=== PATIENT | male | born 1980 | race Caucasian/White ===

== ENCOUNTER 2018-10-03 06:45 | Inpatient (IN) | payer SELFPAY ==
[2018-10-03 06:46] VITALS: BP 129/79; PULSE 62; RESP 18; TEMP 36.6; O2SAT 99; BMI 33.0
--- NOTE | 2018-10-03 07:09 | ED.DCSUM_ITS ---
History of Present Illness Chief Complaint: Abd Pain Informant: Patient Onset: Days Context: Gradual Onset Timing: Waxes and wanes Current Severity: Moderate Maximum Severity: Moderate Narrative: Patient reports history of pancreatitis. He reports developing upper abdominal pain 4 days ago. He did not eat or drink for the next 2 days and pain was significantly improved. When he ate again yesterday he had recurrence of pain. He states he was last admitted 3 weeks ago at [facility]. He has had prior cholecystectomy. He states he was told he had some pancreatic duct stones. He also has a pseudocyst. Past Medical History - Allergies and Home Meds Allergies/Adverse Reactions: Allergies No Known Allergies Allergy (Verified 10/03/18 06:49) Primary Care Physician: Nguyen Oliver MD [NON-STAFF] - Prior records reviewed: Yes Past Medical History: - - Reviewed Surgical History: cholecystectomy Smoking Status: Current every day smoker - Family History Maternal Family History: Reports: No pertinent history Review of Systems General: Denies: Chills, Fever Eyes: Denies: Visual changes - bilaterally ENT: Denies: Bilateral ear pain Cardiovascular: Denies: Chest pain Respiratory: Denies: Dyspnea, Cough Gastrointestinal: Reports: Abdominal pain. Denies: Nausea, Vomiting, Diarrhea Musculoskeletal: Denies: Myalgias Skin: Denies: Rash Neurological: Denies: Headache Endocrine: Denies: Polyuria, Polydipsia Hematologic: Denies: Easy bruising Allergy: Denies: Uticaria Physical Exam Vital Signs/Narrative: Vital Signs Temp Pulse Resp BP Pulse Ox 10/03/18 06:46 97.9 F 62 18 129/79 H 99 General: Well nourished Head: Normocephalic ENT: Moist mucous membranes Cardiovascular: Regular rate, Regular rhythm Respiratory: No distress, CTA bilaterally Abdomen: Soft, Tender - Epigastric tenderness to palpation., Hypoactive bowel sounds. Negative for: Guarding, Rebound tenderness Skin: Normal color Neurological: Alert, Oriented x3 Psychological: Normal affect Diagnostic/Tx/Re-eval Laboratory Results 10/03/18 10/03/18 07:10 07:10 WBC 9.2 RBC 5.09 Hgb 16.3 Hct 46.8 MCV 91.9 MCH 32.0 MCHC 34.8 RDW Std Deviation 43.7 RDW Coeff of Gomez 12.9 Plt Count 271 MPV 9.1 Immature Gran % (Auto) 0.300 Neut % (Auto) 72.4 H Lymph % (Auto) 16.5 L Garrett % (Auto) 7.9 Eos % (Auto) 2.5 Baso % (Auto) 0.4 Absolute Neuts (auto) 6.6 Absolute Lymphs (auto) 1.51 Nucleated RBC % 0 Sodium 138 Potassium 3.9 Chloride 106 Carbon Dioxide 23.0 Anion Gap 9 BUN 8 Creatinine 0.79 Estim Creat Clear Calc 139.16 Est GFR (MDRD) Af Amer 141 Est GFR (MDRD) Non-Af 117 BUN/Creatinine Ratio 10.2 Glucose 108 H Calcium 9.4 Total Bilirubin 5.10 H Direct Bilirubin 3.74 H AST 234 H ALT 329 H Alkaline Phosphatase 343 H Total Protein 7.2 Albumin 3.5 Globulin 3.7 Lipase 3137 H - Medical Decision Making Patient was given morphine, Zofran, IV fluids. A second dose of analgesics has been ordered. Patient's laboratory studies do returned with elevated LFTs and lipase consistent with acute pancreatitis. I was able to review clinisync records. [place] [facility] [place] Per their notes it had been recommended that he have endoscopic ultrasound and biopsy. Apparently arrangements were made to send the patient to [facility]. Per their notes once a bed is been established patient refused transfer. When I presented this to the patient today he states that he has been dealing with pancreatitis for over 10 years. He states that he just wants to get this flare under control so he can go back to work on Friday. He currently does not have insurance and is trying to get through to get insurance where he can get these other tests performed. I spoke with hospitalist. Patient will be admitted for pain control and IV fluids. ED Disposition - Plan for ED Patient: Disposition: [facility] Diagnosis: Pancreatitis Referrals: Nguyen Oliver MD [NON-STAFF] -
[2018-10-03 07:24] LABS: Absolute Lymphocyte Count 1.51 X10^3/uL (0.83-4.51); Absolute Neutrophil Count 6.6 X10^3/uL (2.0-7.7); Basophil# 0.04 X10^3/uL; Basophil% 0.4 % (0-1); Eosinophil# 0.23 X10^3/uL; Eosinophils% 2.5 % (0-5); Hematocrit 46.8 % (40-54); Hemoglobin 16.3 g/dL (13.0-16.5); Lymphocyte # 1.51 X10^3/ul (4.0); Lymphocyte % 16.5 % (19-41); Mean Corp Hgb Conc 34.8 g/dL (32-36); Mean Corpuscular Volume 91.9 fL (80-94); Mean Platelet Vol. 9.1 fl (6.2-12.0); Monocyte# 0.72 X10^3/uL; Monocyte% 7.9 % (0-10); NRBC Flagged by Analyzer 0 % (0-5); Neutrophil # 6.64 X10^3/uL (2.7-7.7); Neutrophil % 72.4 % (47-70); Platelet Count 271 K/mm3 (150-450); RBC Distribution Width CV 12.9 % (11.6-14.6); RBC Distribution Width SD 43.7 fl (35.1-43.9); Red Blood Count 5.09 M/mm3 (4.6-6.2); White Blood Count 9.2 K/mm3 (4.4-11.0)
[2018-10-03] MEDS: 0.9% Normal Saline 1,000 ML 1000 ML IV (07:26)
[2018-10-03] MEDS: Ondansetron 4 MG/2 ML Vial IV ×3 (07:27→22:28)
[2018-10-03] MEDS: Morphine 4 MG/ML Syringe IV (07:27)
[2018-10-03] MEDS: HYDROmorphone 0.5 MG/0.5 ML SYRINGE IV (07:55)
[2018-10-03 07:56] LABS: AST(SGOT) 234 U/L (15-37); Alanine Aminotransfer ALT/SGPT 329 U/L (16-61); Albumin, Serum 3.5 g/dL (3.2-5.0); Alkaline Phosphatase 343 U/L (45-117); Anion Gap 9 (5-15); BUN 8 mg/dL (7-18); BUN/Creat Ratio 10.2 RATIO (10-20); Bilirubin, Direct 3.74 mg/dL (0.00-0.30); Calcium,Total 9.4 mg/dL (8.5-10.1); Chloride 106 mmol/L (98-107); Creatinine, Serum 0.79 mg/dL (0.70-1.30); EST Glomerular Filtration Rate 117 mL/min (>60); Est Glom Filt Rate - Afr Amer 141 mL/min (>60); Estimated Creatinine Clearance 139.16 ml/min; Globulin 3.7 g/dL (2.2-4.2); Glucose 108 mg/dL (74-106); Lipase 3137 U/L (73-393); Potassium 3.9 mmol/L (3.5-5.1); Protein, Total 7.2 g/dL (6.4-8.2); Sodium Level 138 mmol/L (136-145)
--- NOTE | 2018-10-03 08:16 | HP.PCM_ITS ---
Problem List (1) Pancreatitis Status: Acute Qualifiers: Chronicity: acute Pancreatitis type: unspecified pancreatitis type Acute pancreatitis complication: unspecified Qualified Code(s): K85.90 - Acute pancreatitis without necrosis or infection, unspecified (2) Morbid obesity with BMI of 40.0-44.9, adult Status: Chronic (3) Chronic pain syndrome Status: Chronic (4) HEALY (nonalcoholic steatohepatitis) Status: Chronic (5) Pancreas divisum Status: Chronic (6) Tobacco dependence syndrome Status: Chronic History of Present Illness Date of Admission: 10/03/18 Chief Complaint: Abdominal pain - 2 days The patient is a 37 year old M with PMHx of recurrent pancreatitis, who was recently discharged from [facility]. He has a drug seeking history He reports he has a history of pancreatic divisum, this was not seen on his last MRI in 2014. He says he was found to have some pancreatic duct stone and pseudocyst. He has a follow-up appointment in a week with his loan officer assistant. He complains of a 2-day history of abdominal pain, usually he says he is able to stop eating and the pain gets better. Over the last 2 days he has not been able to get any improvement in his pain. He denies any fever or chills or diarrhea Vitals in the ED showed BP 136/72, HR 66, temp 98.3F, respiratory rate is 18, SPO2 is 99% on room air. His admitting blood work was unremarkable except for total bilirubin of 5.10, Direct bilirubin 3.74, AST 234, ALT 329, ALP 343, lipase is 3137. Past Medical History Past Medical History (Chronic Problems): Chronic Problems Morbid obesity with BMI of 40.0-44.9, adult (Chronic) Drug-seeking behavior (Chronic) Chronic pain syndrome (Chronic) HEALY (nonalcoholic steatohepatitis) (Chronic) Pancreas divisum (Chronic) Tobacco dependence syndrome (Chronic) Recurrent pancreatitis (Chronic) Allergies No Known Allergies Allergy (Verified 10/03/18 06:49) Home Medications: Ambulatory Orders Medication Instructions Recorded Oxycodone HCl/Acetaminophen 1 tablet PO Q6H PRN PRN 11/01/14 [Percocet 5-325] Surgical History: cholecystectomy Lives: Alone Smoking Status: Current every day smoker Tobacco Use: Cigarettes Alcohol: None Drugs: None - *Family History Maternal History Items: No pertinent history Paternal History Items: No pertinent history Review of Systems Constitutional: Reports: Anorexia, Fatigue. Denies: Chills, Fever, Malaise, Weakness, Weight Change Eyes: Denies: Blurred vision, Cataracts, Conjunctivae Inflammation, Double vision HEENT: Denies: Difficulty Hearing, Difficulty Swallowing, Head Aches, Hearing Changes, Sinus Congestion, Sinus Drainage Cardiovascular: Denies: Chest Pain, Claudication, Orthopnea, Palpitations, Paroxysmal Noc. Dyspnea Respiratory: Denies: Cough, Shortness of breath at rest, Sputum production Gastrointestinal: Denies: Abdominal Pain, Nausea, Vomiting Genitourinary: Denies: Dysuria Musculoskeletal: Denies: Joint Pain, Joint Tenderness Skin: Denies: Rash, Wounds Neurological: Denies: Numbness, Tingling, Focal weakness Psychiatric: Denies: Anxiety, Depression, Homicidal Ideations, Suicidal Ideatio ns Hematologic/ Lymphatic: Denies: Easy Bruising, Easy Bleeding VTE Information - Inpt Only VTE Present on Admission: No VTE Pharm Prophylaxis ordered?: Yes Patient Problems: Active and Suspected Problems Pancreatitis (Acute) - Physical Exam General: Alert, Oriented x3, Cooperative, No apparent distress HEENT: Atraumatic, PERRLA, EOMI, Normocephalic Oral: Moist Mucosa Neck: Supple Lungs: Clear to auscultation, Normal air movement Cardiovascular: Regular rate, Regular Rhythm, Normal S1, Normal S2, No murmurs Abdomen: Bowel Sounds Present, Soft, Non Tender, Non-Distended, No Hepato- splenomegaly Extremities: No edema Skin: No rashes, No breakdown Musculoskeletal: No Tenderness to Palpation of Joints or Extremities Lymphatic: No Cervical, Supraclavicular, or Inguinal Adenopathy Neurological: Cranial nerves II-XII grossly intact, Neuro grossly intact Psych/Mental Status: Normal Affect, Appropriate Vital Signs Temp Pulse Resp BP Pulse Ox 97.9 F 62 18 129/79 H 99 10/03/18 06:46 10/03/18 06:46 10/03/18 06:46 10/03/18 06:46 10/03/18 06:46 Oxygen Delivery Method Room Air Weight: 110.3 kg Body Mass Index (BMI) 33.0 Laboratory Tests Past 24 Hrs 10/03/18 10/03/18 07:10 07:10 WBC 9.2 RBC 5.09 Hgb 16.3 Hct 46.8 MCV 91.9 MCH 32.0 MCHC 34.8 RDW Std Deviation 43.7 RDW Coeff of Gomez 12.9 Plt Count 271 MPV 9.1 Immature Gran % (Auto) 0.300 Neut % (Auto) 72.4 H Lymph % (Auto) 16.5 L [place] % (Auto) 7.9 Eos % (Auto) 2.5 Baso % (Auto) 0.4 Absolute Neuts (auto) 6.6 Absolute Lymphs (auto) 1.51 Nucleated RBC % 0 Sodium 138 Potassium 3.9 Chloride 106 Carbon Dioxide 23.0 Anion Gap 9 BUN 8 Creatinine 0.79 Estim Creat Clear Calc 139.16 Est GFR (MDRD) Af Amer 141 Est GFR (MDRD) Non-Af 117 BUN/Creatinine Ratio 10.2 Glucose 108 H Calcium 9.4 Total Bilirubin 5.10 H Direct Bilirubin 3.74 H AST 234 H ALT 329 H Alkaline Phosphatase 343 H Total Protein 7.2 Albumin 3.5 Globulin 3.7 Lipase 3137 H Assessment/Plan All Active Problems Pancreatitis (Acute) 37 year old M with PMHx of recurrent pancreatitis, who was recently discharged from [facility]. He has a drug seeking history He reports he has a history of pancreatic divisum, this was not seen on his last MRI in 2014. He says he was found to have some pancreatic duct stone and pseudocyst. He has a follow-up appointment in a week with his loan officer assistant. 1. Acute recurrent pancreatitis, elevated lipase on admission, reportedly following a loan officer assistant Plan:Admit to Medsurg, NPO, IVF, pain control, antiemetic, repeat lipase in am 2. History of drug seeking behavior, will request records from [facility] 3. DVt PPx- early ambulation Code Visit Inpatient E&M: 69592 Init Hosp L2
[2018-10-03] MEDS: 0.9% Normal Saline 1,000 ML 150 ML IV ×3 (08:31→20:18)
[2018-10-03 08:58] VITALS: BP 122/70; PULSE 45; RESP 18; TEMP 36.5; O2SAT 100; BMI 30.3
--- NOTE | 2018-10-03 09:39 | NURSING ---
Pain states pain 12/03, this nurse stated she would call pharmacy to verify morphine. Pt stated, Morphine doesn't f help my pain, i have had this for 10 years don't you people look at past charts, i have to take dilaudid. This nurse stated we could try the morphine and if it doesnt help talk with the doctor, pt began cursing again, MD Notified of patients behavior and request. Pt currently sitting in bed playing on cell phone.
[2018-10-03] MEDS: Morphine 2 MG/ML Syringe IV (09:45)
[2018-10-03] MEDS: oxyCODONE 5 MG Tablet PO ×2 (09:45→15:52)
[2018-10-03] MEDS: HYDROmorphone 1 MG/ML Syringe IV ×5 (10:42→22:27)
--- NOTE | 2018-10-03 10:55 | CM.UR ---
Met face to face with patient. Patient was trying to sleep and cut me short by saying he doesn't need anything. States he is independent at home. DENIES any needs at discharge. Explained I saw he was self pay. States that he now has insurance that will kick in-in about a month. Asked if he was familiar with the programs. States that he doesn't qualify as they make too much. Alerted CHARO Fernandes. Tila Flowers RN, [facility].
--- NOTE | 2018-10-03 12:19 | NURSING ---
Pt sleeping upon entering room, woke up when he heard this nurse on computer. Pt states he didn't even feel his Dilaudid go in, nurse explained she gave to patient furthest away from body, pt again stating he is in so much pain he is dreaming about pain. Nurse reminded patient he was sleeping up entering room, and does not appear to be in distress, pt states well yeah the pain meds are helping me sleep now, but i have to have dilaudid q2hrs, reminded patient med is ordered q3 and that this nurse talked with MD and medication will remain q3 and that we are requesting medical records to go over past visits from [facility].
--- NOTE | 2018-10-03 13:16 | CASEMGMT ---
Social Work Attempted to see patient for self-pay status. Patient stating to be in pain and not wanting to speak with this child protective services social worker. Patient stating to have needed support. Praveen MANCILLA, RODERICK
[2018-10-03 13:48] VITALS: BP 136/72; PULSE 66; RESP 18; TEMP 36.8; O2SAT 99
--- NOTE | 2018-10-03 13:59 | NURSING ---
Pt being began becoming verbally abusive with this nurse stating that when he was to get his pain med he is to only get it from the port closest to him. Blocked IV pump from nurse stating, You will fucking put the med where i tell you, or you can have that doctor come up here and discharge me and tell her this is the only place you are putting the fucking med. Pt educated that pain med given through either port is effective for pain management, reminded that when this nurse was in patients room earlier he was sleeping. Pt stated i was sleeping being the narcotic made me tired, but because you placed it in the far port my pain was always off the chart.
--- NOTE | 2018-10-03 16:24 | EKG12_ITS ---
Test Reason : CP Blood Pressure : / mmHG Vent. Rate : 048 BPM Atrial Rate : 048 BPM P-R Int : 118 ms QRS Dur : 092 ms QT Int : 430 ms P-R-T Axes : 045 019 029 degrees QTc Int : 384 ms Sinus bradycardia Otherwise normal ECG No previous ECGs available Confirmed by RAN GUZMAN ([id number]), manager editorial MOON MORA ([id number]) on 10/08/2018 2:59:05 PM Referred By: SANDEEP Confirmed By:RAN GUZMAN
--- NOTE | 2018-10-03 17:02 | NURSING ---
Pt requesting to be transferred to different hospital, states he has never felt this way, and his pain isnt being managed, despite after he receiving pain Meds patient has been witnessed sleeping. Txt sent to MD notifying of request for transfer.
[2018-10-03 20:00] VITALS: BP 113/57; PULSE 62; RESP 20; TEMP 36.7; O2SAT 95
--- NOTE | 2018-10-03 21:51 | NURSING ---
[facility] called for transport. will be here in less then 30 minutes for pickup.
--- NOTE | 2018-10-03 22:16 | NURSING ---
Report called to Areli at [facility] [phone]. Pt signed paper for transport. Notified Dr. Kovacs that pt will be leaving. Pt requesting Dilaudid for transport. OK to give Dilaudid early per Dr. Kovacs.
--- NOTE | 2018-10-04 07:49 | DS.PCM_ITS ---
Discharge Date and Diagnosis Date of Admission: 10/03/18 Date of Discharge: 10/03/18 - Primary Discharge Diagnosis Acute recurrent pancreatitis - Secondary Discharge Diagnosis Chronic Problems Morbid obesity with BMI of 40.0-44.9, adult (Chronic) Drug-seeking behavior (Chronic) Chronic pain syndrome (Chronic) HEALY (nonalcoholic steatohepatitis) (Chronic) Pancreas divisum (Chronic) Tobacco dependence syndrome (Chronic) Recurrent pancreatitis (Chronic) Hospital Course and Treatment None Operations: None Procedures: None Summary of Care Provided: 37 year old M with PMHx of recurrent pancreatitis, who was recently discharged from [facility]. Patient reports he has a history of pancreatic divisum, this was not seen on his last MRI in 2014. He says he was recently found to have some pancreatic duct stone and pseudocyst. He has a follow-up appointment in a week with his roll shop supervisor. His lipase on admission was 3137. Patient wa s initially not willing to transferred to [facility]. He wanted to get some conservative treatment here prior to transfer. He was started on IV fluids, kept n.p.o., pain medications and PRN antiemetics On the Medsurg floor, patient was verbally abusive to his nurse. He wanted his pain medicines increased. He also wanted his pain medicines given in the port closest to his IV access. He was observed to be comfortable and napping in between nurse visits; he only awakes when it is noise in the room. He later on in the day requested transfer to [facility] or [facility]. He was accepted by the [facility]. Subjective: See H&P Objective: See H&P - Physical Exam Vital Signs Temp Pulse Resp BP Pulse Ox 98.1 F 62 20 H 113/57 L 95 10/03/18 20:00 10/03/18 20:00 10/03/18 20:00 10/03/18 20:00 10/03/18 20:00 Oxygen Delivery Method Room Air Weight: 101.423 kg Body Mass Index (BMI) 30.3 Intake and Output for Last 24 Hours 10/02/18 10/03/18 10/04/18 23:59 23:59 23:59 Intake Total 1401 / 1401 Balance 1401 / 1401 Laboratory Tests Past 24 Hrs 10/03/18 07:10 Sodium 138 Potassium 3.9 Chloride 106 Carbon Dioxide 23.0 Anion Gap 9 BUN 8 Creatinine 0.79 Estim Creat Clear Calc 139.16 Est GFR (MDRD) Af Amer 141 Est GFR (MDRD) Non-Af 117 BUN/Creatinine Ratio 10.2 Glucose 108 H Calcium 9.4 Total Bilirubin 5.10 H Direct Bilirubin 3.74 H AST 234 H ALT 329 H Alkaline Phosphatase 343 H Total Protein 7.2 Albumin 3.5 Globulin 3.7 Lipase 3137 H Discharge Diet: No Restrictions Home Medications: Medications to take at Discharge Oxycodone HCl/Acetaminophen [Percocet 5-325] 1 tablet PO Q6H PRN PRN 11/01/14 Primary Care Physician: Nguyen Oliver MD [NON-STAFF] - Disposition: Acute care Hospital Minutes spent on discharge:: 45 Patient Condition:: Stable Medical Necessity - Tobacco Use Smoking Status: Current every day smoker Tobacco Use: Cigarettes Meaningful Use Info Meaningful Use Diagnoses (Choose all that apply): None applicable Code Visit Inpatient E&M: 15342 Disch Hosp
== END 2018-10-03 22:30 | disposition short-term general hospital (02) | DRG 439 ==
LOC: ED 08:17 → MS3 08:35
PROVIDERS: Admitting Provider Internal Medicine; Emergency Provider Emergency Medicine; Visit Provider Internal Medicine
DX: K85.90 Acute pancreatitis without necrosis or infection, unspecified (principal); Q45.3 Other congenital malformations of pancreas and pancreatic duct; K75.81 Nonalcoholic steatohepatitis (NASH); Z76.5 Malingerer [conscious simulation]; G89.4 Chronic pain syndrome; F17.210 Nicotine dependence, cigarettes, uncomplicated
CPT/HCPCS: 80048; 80076; 83690; 85025; 93005; 97802; 99285; J7030; A4216; J2405

== ENCOUNTER → 2020-02-12 | Outpatient (CLI) | payer MEDICAID, SELFPAY ==
[2020-02-12 12:50] VITALS: BMI 41.1
== END | disposition home or self-care (01) ==
PROVIDERS: Referring Provider Physician Assistant; Visit Provider Physician Assistant
DX: Z20.828 Contact with and (suspected) exposure to other viral communicable diseases (principal)
CPT/HCPCS: 87635; U0003